=== PATIENT | female | born 1955 | race Caucasian/White ===

== ENCOUNTER 2019-12-11 13:41 | Emergency (ER) | payer OTHER ==
[~2019-12-11] VITALS: Ht 157.5 cm; Wt 59.4 kg
[2019-12-11] MEDS ORDERED: NOHOMEMEDICATIONS (14:04)
[2019-12-11 14:11] LABS: ABSOLUTE NEUTROPHILS 6.4 thou/uL (1.4-8.2); BASOPHILS 1.2 % (0.0-2.0); EOSINOPHILS 1.3 % (0.0-3.0); HEMATOCRIT 44.1 % (37.0-47.0); HEMOGLOBIN 15.1 gm/dL (12.0-15.0); LYMPHOCYTES 21.5 % (24.0-44.0); MCH 30.8 pg (26.0-34.0); MCHC 34.2 g/dL (28.0-37.0); MONOCYTES 3.5 % (1.0-8.0); PLATELET COUNT 289 thou/uL (150-400); POLYS 72.5 % (36.0-66.0); RBC 4.89 mil/uL (4.20-5.00); RDW 14.4 % (10.5-14.5); WBC 8.9 thou/uL (4.0-11.0)
[2019-12-11 14:33] LABS: ANION GAP 10 mmol/L (7-16); BUN 9 mg/dL (7-18); CALCIUM 9.2 mg/dL (8.5-10.1); CHLORIDE 100 mmol/L (98-107); CO2 27 mmol/L (21-32); CREATININE 0.9 mg/dL (0.6-1.0); GLUCOSE 213 mg/dL (74-106); POTASSIUM 3.5 mmol/L (3.5-5.1); SODIUM 137 mmol/L (136-145)
[2019-12-11 14:44] LABS: ALBUMIN 4.1 g/dL (3.4-5.0); SGOT 25 U/L (15-37); SGPT 24 U/L (30-65); TOTAL BILIRUBIN 0.3 mg/dL (<0.1-1.0); TOTAL PROTEIN 7.8 g/dL (6.4-8.2); TROPONIN-I <0.06 ng/mL (<0.06)
[2019-12-11 16:39] VITALS: BP 109/61
--- NOTE | 2019-12-12 08:04 | EKG ---
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: [facility] : 1955 Requested By: Kalani Romano Order Number: [id number] MD: Esteban Conner Measurements Intervals [place] Rate: 94 P: 58 TN: 147 QRS: 13 QRSD: 101 T: -3 QT: 356 QTc: 446 Interpretive Statements Sinus rhythm Abnormal R-wave progression, early transition Nonspecific ST and T wave abnormality No previous ECG available for comparison Electronically Signed On 12-12-2019 8:02:07 CDT by Esteban Conner [email or web address] <ELECTRONICALLY SIGNED> By: Esteban Conner MD, [facility] 12/12/19 0802 1349 1349 Esteban Conner MD, [facility] /EPI
--- NOTE | 2019-12-12 08:04 | EKG ---
[facility] [place] [address] ELECTROCARDIOGRAM REPORT Name: KATINA WU Room #: DEP [facility]..#: [id number] Admission: 12/11/19 Attend Phys: Discharge: 12/11/19 Date of : 57 Report #: [id number] THIS REPORT FOR: cc: EDGAR - Marisabel family physician/PCP EDGAR - Marisabel family physician/PCP Esteban Conner MD [facility] THIS REPORT FOR: //name// 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: [facility] : 1955 Requested By: Kalani Romano Order Number: [id number] MD: Esteban Conner Measurements Intervals [place] Rate: 82 P: 44 RI: 154 QRS: 7 QRSD: 105 T: 21 QT: 368 QTc: 430 Interpretive Statements Sinus rhythm Abnormal R-wave progression, early transition Inferior infarct, old No previous ECG available for comparison Electronically Signed On 12-12-2019 8:02:37 CDT by Esteban Conner [email or web address] <ELECTRONICALLY SIGNED> By: Esteban Conner MD, [facility] 12/12/19 0802 1429 1429 Esteban Conner MD, [facility] /EPI
== END 2019-12-11 16:40 | disposition home or self-care (01) ==
LOC: ER 13:41
PROVIDERS: Physician Assistant
DX: R07.9 Chest pain, unspecified (principal); R20.0 Anesthesia of skin; R53.1 Weakness; R51 Headache; R06.02 Shortness of breath; R41.0 Disorientation, unspecified; F17.210 Nicotine dependence, cigarettes, uncomplicated; Z88.0 Allergy status to penicillin